=== PATIENT | female | born 1935 | race Caucasian/White ===

== ENCOUNTER → 2017-05-14 | Outpatient (CLI) | payer OTHER ==
[~2017-05-14] MED LIST: BENZOCAINE ONE 20% MUCOSAL SPRAY.; IOHEXOL 350 MG/ML 100 ML VIAL. ONE; IOHEXOL 350 MG/ML 50 ML VIAL. ONE; IV NORMAL SALINE 1,000 ML BAG ONE; LIDOCAINE 1% Multi-Dose 20 ML VIAL. ONE; MIDAZOLAM HCL/PF 2 MG/2 ML VIAL. ONE; fentaNYL PF VIAL 100 MCG/2 ML VIAL ONE
--- NOTE | 2017-05-14 16:40 | PCVCIMAG ---
APPROVED REPORT Study performed: 05/14/2017 09:21:26 EXAM: Comprehensive 2D, Doppler, and color-flow Echocardiogram Patient Location: CVL Status: routine BSA: 1.50 HR: 64 bpmBP: 155/65 mmHg Rhythm: LBBB Other Information Study Quality: Good Indications Aortic Valve Disease Congestive Heart Failure Assess Ejection Fraction Echo Enhancing Agent Indication: Rule out Shunt Agent(s) / Amount(s) Used: Agitated Saline cc Comments: Negative contrast study for shunt flow. 2D Dimensions LVOT Diam: 20.61 (18-24mm) LV Single Plane 4CH: 24.99 % LV Single Plane 2CH: 35.28 %Ortez's LVEF: 30.14 % Biplane EF: 30.4 % Aortic Valve AoV Peak Reji.: 2.51 m/s AO Peak Gr.: 24.66 mmHgLVOT Max P.47 mmHg AO Mean Gr.: 14.96 mmHgLVOT Mean P.62 mmHg AO V2 Mean: 1.82 m/sLVOT Max V: 0.93 m/s AO V2 VTI: 53.66 cmLVOT Mean V: 0.56 m/s MIRA (VTI): 1.18 [id number] V1 VTI: 18.94 cm MIRA Vmax: 1.23 cm2 SV (LVOT): 63.14 mL Procedure After obtaining informed consent, patient underwent transesophageal echo in the [employer]. Type of Sedation : Conscious Sedation Sedation was administered by Kathleen Bay RN. Versed (3mg) Fentanyl (75mcg) Transesophageal probe was inserted and advanced into esophagus without difficulty by Zain Bullock MD. Echo enhancement indication: R/O Septal defect. Echo enhancement agent administered: Agitated Saline The RENÉ was performed without complications. Throughout the procedure, the blood pressure, pulse oximetry, cardiac rhythm, and rate were monitored. The patient tolerated the procedure without adverse effects. Recovery from conscious sedation was uneventful and vital signs were stable. Left Ventricle The left ventricle is normal size. Global systolic dysfunction There is normal left ventricular wall thickness. Left ventricular systolic function is severely depressed. LVEF is 25-30%. Right Ventricle The right ventricle is normal size. The right ventricular systolic function is normal. Atria The left atrium size is normal. No masses or clots in the left atrium or appendage No shunting by contrast bubble injection The right atrium size is normal. Aortic Valve Aortic valve is trileaflet, mildly calcified. No aortic regurgitation is present. Calculated aortic valve area is 1.2 cm2 with maximum pressure gradient of 25 mmHg and mean pressure gradient of 15 mmHg. Mild-moderate stenosis Mitral Valve Mild mitral annular calcification Mild to moderate mitral regurgitation. No evidence of mitral valve stenosis. Tricuspid Valve The tricuspid valve is normal in structure. Mild tricuspid regurgitation. Pulmonic Valve The pulmonary valve is normal in structure. There is no pulmonic valvular regurgitation. Great Vessels The aortic root is normal in size. Mild scattered atherosclerosis in aorta. No aneurysm or dissection Pericardium There is no pericardial effusion. <Conclusion> Left ventricular systolic function is severely depressed. Global systolic dysfunction LVEF is 25-30%. The left atrium size is enlarged. No masses or clots in the left atrium or appendage. No shunting by contrast bubble injection Trileaflet aortic valve, mildly calcified Calculated aortic valve area is 1.2 cm2 with maximum pressure gradient of 25 mmHg and mean pressure gradient of 15 mmHg. Mild-moderate stenosis Mild mitral annular calcification. Mild to moderate mitral regurgitation. There is no pericardial effusion.
--- NOTE | 2017-05-14 16:53 | PCVCINTER ---
APPROVED REPORT Patient Details Patient Status: Out-Patient Room #: 1 The patient is a 81 year-old Female Event Personnel Ara Vences MD, Yefri Kasper RN, Kamala Mendiola,RT, , Rocio Schaefer RT(R) Risk Factors Dysplipidemia (Type: 1), Hypercholesterolemia, Last Creatanine 0.7Tobacco History (Never) Previous Procedures/Diagnoses Previous CHF, CHF, Valvular heart disease, LV dysfunction Procedure Narrative The patient was brought electively to the Cardiac Catheterization Laboratory and was prepped and draped in a sterile manner. The right femoral was infiltrated with 1% Lidocaine subcutaneous anesthesia. A 6 sheath was inserted into the right femoral artery. Coronary angiography was performed using coronary diagnostic catheters. The right coronary system was accessed and visualized with a JR4 catheter. The left coronary system was accessed and visualized with a JL4 catheter. An aortogram of the BRAZILIAN was performed. Closure device was deployed with a 6 Fr Mynx. Hemostasis was obtained with manual pressure following sheath removal without any complications. The patient tolerated the procedure well and there were no complications associated with the procedure. There was no hematoma. Coronary Angiography The patient's coronary anatomy is right dominant. Diagnostic Cath Left MainMild plaquing LADModerately calcificed. Moderate 30-40% scattered proximal and mid LAD plaquing. The LAD wrapped around the apex to the mid inferior wall Diagonal 1Normal [id number] was comprised of a single, large marginal branch. Mild scattered proximal plaquing 20-30% Right CoronaryModerately calcified proximal and mid vessel. 20-30% proximal and mid RCA plaquing 50% distal RCA stenosis prior to origin of small PDA Left Ventriculography Left Ventriculography was not performed. The left ventricular ejection fraction is estimated to be 25-30%. Supravalvular aortography: No aneurysm or dissection No aortic insufficiency Hemodynamics The aortic pressure is 146/58 mmHg with a mean of 89 mmHg. The left ventricular pressure is 146 mmHg with a mean of 89 mmHg. Conclusion 1. Severe left ventricular dysfunction. Mild-moderate aortic stenosis by echocardiography 2. LM mild plaquing 3. Moderate scattered proximal and mid LAD stenoses (30-40%) 4. Mild circumflex plaquing 5. Moderate RCA plaquing. 50% distal RCA stenosis Recommendations Medical Therapy
== END | disposition home or self-care (01) ==
LOC: PCVCINTER 08:33
PROVIDERS: ATTEND Internal Medicine
DX: I25.10 Atherosclerotic heart disease of native coronary artery without angina pectoris (principal); I08.1 Rheumatic disorders of both mitral and tricuspid valves; E78.00 Pure hypercholesterolemia, unspecified; E78.5 Hyperlipidemia, unspecified; I11.0 Hypertensive heart disease with heart failure; I50.9 Heart failure, unspecified
CPT/HCPCS: 93312; 93325; 93458; 99152; 99153; C1760; C1769; C1894; J1644; J2250; J3010; J7030; Q9967

== ENCOUNTER → 2017-08-19 | Outpatient (CLI) | payer OTHER ==
--- NOTE | 2017-08-19 14:42 | PCVCIMAG ---
APPROVED REPORT Study performed: 08/19/2017 12:57:27 EXAM: Comprehensive 2D, Doppler, and color-flow Echocardiogram Patient Location: Echo lab Status: routine BSA: 1.51 HR: 59 bpmBP: 124/58 mmHg Rhythm: LBBB Other Information Study Quality: Adequate Risk Factors: Cardiac Risk Factors: HTN, Hyperlipidemia Indications Aortic Valve Disease Congestive Heart Failure 2D Dimensions LVEF(%): 38.55 (>50%) IVSd: 14.04 (7-11mm)LVOT Diam: 20.00 (18-24mm) LVDd: 51.42 mm PWd: 14.16 (7-11mm)Ascending Ao: 31.09 (22-36mm) LVDs: 41.77 (25-40mm) Left Atrium: 37.74 (27-40mm) Aortic Root: 31.96 mm LV Single Plane 4CH: 34.01 % LV Single Plane 2CH: 31.55 %Ortez's LVEF: 32.78 % Volumes Left Atrial Volume (Systole) Single Plane 4CH: 54.30 mLSingle Plane 2CH: 50.29 mL LA ESV Index: 35.00 mL/m2 Aortic Valve AoV Peak Reji.: 2.41 m/s AO Peak Gr.: 23.28 mmHgLVOT Max P.01 mmHg AO Mean Gr.: 15.34 mmHgLVOT Mean P.95 mmHg AO V2 Mean: 1.89 m/sLVOT Max V: 1.00 m/s AO V2 VTI: 54.93 cmLVOT Mean V: 0.64 m/s MIRA (VTI): 1.30 [id number] V1 VTI: 20.07 cm MIRA Vmax: 1.27 cm2 AI Vmax: 2.74 m/sSV (LVOT): 61.29 mL AI [place]: 1.48 m/s2 AI PHT: 540.84 ms Mitral Valve E/A Ratio: 0.5 MV Decel. Time: 293.30 ms MV E Max Reji.: 0.67 m/s MV A Reji.: 1.38 m/s IVRT: 76.12 ms TDI E/Lateral E': 11.17 Preload (E/e): 6.00 (0-8m/s)Lateral E' Reji.: 0.06 m/s Pulmonary Valve PV Peak Reji.: 1.08 m/sPV Peak Gr.: 4.70 mmHg TN End Vmax: 0.90 m/s Pulmonary Vein P Vein S: 0.45 m/sP Vein A: 0.28 m/s P Vein D: 0.47 m/sP Vein A Dur.: 96.9 msec P Vein S/D Ratio: 0.96 Tricuspid Valve TR Peak Reji.: 2.22 m/sRAP Estimate: 7.00 mmHg TR Peak Gr.: 19.76 mmHg PA Pressure: 26.00 mmHg Left Ventricle The left ventricle is normal size. There is normal LV segmental wall motion. Moderate concentric left ventricular hypertrophy. Left ventricular systolic function is moderately decreased. Discordant septal motion probably from intraventricular conduction delay. LVEF is 30-35%. Grade I - abnormal relaxation pattern. Right Ventricle The right ventricle is normal size. The right ventricular systolic function is normal. Atria The left atrium size is normal. The right atrium size is normal. Aortic Valve Aortic valve leaflets are moderately calcified Mild aortic regurgitation. Mild to moderate aortic stenosis.Peak arotic valve gradient is 23 mmHg, and mean is 15 mmHg.Aortic valve area is 1.3 cm2. Mitral Valve Moderate mitral annular calcification. Mild to moderate mitral regurgitation. No evidence of mitral valve stenosis. Tricuspid Valve The tricuspid valve is normal in structure. Mild tricuspid regurgitation. Pulmonary artery pressure is 26 mmHg. Pulmonic Valve The pulmonary valve is normal in structure. Mild to moderate pulmonic regurgitation. Great Vessels The aortic root is normal in size. IVC is normal in size and collapses with >50% inspiration Pericardium There is no pericardial effusion. There is no pericardial effusion. <Conclusion> Left ventricular systolic function is moderately decreased. Discordant septal motion probably from intraventricular conduction delay. LVEF is 30-35%. Grade I diastolic dysfunction Aortic valve leaflets are moderately calcified. Mild aortic regurgitation. Mild to moderate aortic stenosis. Peak arotic valve gradient is 23 mmHg, and mean is 15 mmHg.Aortic valve area is 1.3 cm2. Moderate mitral annular calcification. Mild to moderate mitral regurgitation. Pulmonary artery pressure of 26mmHg No pericardial effusion
== END | disposition home or self-care (01) ==
LOC: PCVCIMAG 12:40
PROVIDERS: ATTEND Internal Medicine
DX: I11.0 Hypertensive heart disease with heart failure (principal); I50.32 Chronic diastolic (congestive) heart failure; E78.5 Hyperlipidemia, unspecified; I25.10 Atherosclerotic heart disease of native coronary artery without angina pectoris; I44.7 Left bundle-branch block, unspecified; I08.3 Combined rheumatic disorders of mitral, aortic and tricuspid valves; R94.31 Abnormal electrocardiogram [ECG] [EKG]; R00.1 Bradycardia, unspecified; Z79.899 Other long term (current) drug therapy
CPT/HCPCS: 93005; 93306; G0463

== ENCOUNTER → 2018-07-11 | Outpatient (CLI) | payer OTHER | END | disposition home or self-care (01) | LOC: PCVCCLINIC 14:59 | PROVIDERS: ATTEND Internal Medicine | DX: I25.10 Atherosclerotic heart disease of native coronary artery without angina pectoris (principal); I11.0 Hypertensive heart disease with heart failure; I50.9 Heart failure, unspecified; E78.5 Hyperlipidemia, unspecified | CPT/HCPCS: 36415 ==

== ENCOUNTER → 2018-08-23 | Outpatient (CLI) | payer OTHER | END | disposition home or self-care (01) | LOC: PCVCCLINIC 12:02 | PROVIDERS: ATTEND Internal Medicine | DX: I25.10 Atherosclerotic heart disease of native coronary artery without angina pectoris (principal); I11.0 Hypertensive heart disease with heart failure; I50.22 Chronic systolic (congestive) heart failure; I35.0 Nonrheumatic aortic (valve) stenosis; R94.31 Abnormal electrocardiogram [ECG] [EKG]; E78.5 Hyperlipidemia, unspecified; I44.7 Left bundle-branch block, unspecified; I42.9 Cardiomyopathy, unspecified; Z79.899 Other long term (current) drug therapy | CPT/HCPCS: 36415; 80061; 93005; G0463 ==

== ENCOUNTER → 2018-12-05 | Outpatient (CLI) | payer OTHER ==
--- NOTE | 2018-12-05 11:25 | PCVCIMAG ---
APPROVED REPORT Study performed: 12/05/2018 10:00:24 EXAM: Comprehensive 2D, Doppler, and color-flow Echocardiogram Patient Location: Echo lab Status: routine BSA: 1.49 HR: 61 bpmBP: 128/80 mmHg Rhythm: NSR Other Information Study Quality: Good Risk Factors: Cardiac Risk Factors: HTN Indications Aortic Valve Disease Cardiomyopathy Hypertension/HDD 2D Dimensions IVSd: 16.47 (7-11mm)LVOT Diam: 19.94 (18-24mm) LVDd: 59.88 mm PWd: 13.51 (7-11mm)Ascending Ao: 38.47 (22-36mm) LVDs: 53.76 (25-40mm) Left Atrium: 43.41 (27-40mm) Aortic Root: 31.40 mm LV Single Plane 4CH: 18.76 % LV Single Plane 2CH: 29.10 % Biplane EF: 25.7 % Volumes Left Atrial Volume (Systole) Single Plane 4CH: 52.25 mLSingle Plane 2CH: 61.64 mL LA ESV Index: 37.00 mL/m2 Aortic Valve AoV Peak Reji.: 2.72 m/s AO Peak Gr.: 29.49 mmHgLVOT Max P.79 mmHg AO Mean Gr.: 16.14 mmHgLVOT Mean P.51 mmHg AO V2 Mean: 1.91 m/sLVOT Max V: 0.84 m/s AO V2 VTI: 63.38 cmLVOT Mean V: 0.59 m/s MIRA (VTI): 0.88 [id number] V1 VTI: 17.87 cm MIRA Vmax: 0.96 cm2 SV (LVOT): 55.80 mL Mitral Valve E/A Ratio: 0.4 MV Decel. Time: 284.82 ms MV E Max Reji.: 0.59 m/s MV A Reji.: 1.46 m/s TDI E/Lateral E': 11.80E/Medial E': 9.83 Medial E' Reji.: 0.06 m/s Lateral E' Reji.: 0.05 m/s Pulmonary Valve PV Peak Gr.: 3.38 mmHg Pulmonary Vein P Vein S: 0.52 m/sP Vein A: 0.24 m/s P Vein D: 0.54 m/sP Vein A Dur.: 93.4 msec P Vein S/D Ratio: 0.96 Tricuspid Valve TR Peak Reji.: 2.48 m/s TR Peak Gr.: 24.55 mmHg Left Ventricle Left ventricle is dilated. There is global hypokinesis of the left ventricle. There is normal left ventricular wall thickness. Left ventricular systolic function is severely decreased. LVEF is 20-25%. Mild diastolic dysfunction is present (impaired relaxation pattern). Right Ventricle The right ventricle is normal size. The right ventricular systolic function is normal. Atria Left atrium is mildly dilated. The right atrium size is normal. Aortic Valve Aortic valve is probably trileaflet. Aortic valve leaflets are moderately thickened. Trace aortic regurgitation. Aortic peak gradient is 30mmHg. Mean gradient is 17mmHg. Calculated aortic valve area is 1.0cm2. Mitral Valve Moderate mitral annular calcification. Mild mitral regurgitation. No evidence of mitral valve stenosis. Tricuspid Valve The tricuspid valve is normal in structure. Trace to mild tricuspid regurgitation. Pulmonary artery pressure is 30 mmHg. Pulmonic Valve The pulmonary valve is normal in structure. Trace pulmonic regurgitation. Great Vessels The aortic root is normal in size. IVC is normal in size and collapses >50% with inspiration. Pericardium There is no pericardial effusion. <Conclusion> Left ventricular systolic function is severely decreased. There is global hypokinesis of the left ventricle. LVEF is 20-25%. Mild diastolic dysfunction Left atrium is mildly dilated. Aortic valve is probably trileaflet. Trace aortic regurgitation. Moderate stenosis Aortic peak gradient is 30mmHg. Mean gradient is 17mmHg. Calculated aortic valve area is 1.0cm2. Moderate mitral annular calcification. Mild mitral regurgitation. Trace to mild tricuspid regurgitation. Pulmonary artery pressure of 30 mmHg. There is no pericardial effusion.
== END | disposition home or self-care (01) ==
LOC: PCVCIMAG 09:59
PROVIDERS: ATTEND Internal Medicine
DX: I34.0 Nonrheumatic mitral (valve) insufficiency (principal); I10 Essential (primary) hypertension; I42.9 Cardiomyopathy, unspecified
CPT/HCPCS: 93306

== ENCOUNTER → 2019-06-20 | Outpatient (CLI) | payer OTHER | END | disposition home or self-care (01) | LOC: PCVCCLINIC 13:00 | PROVIDERS: ATTEND Internal Medicine | DX: I11.0 Hypertensive heart disease with heart failure (principal); I50.42 Chronic combined systolic (congestive) and diastolic (congestive) heart failure; I25.10 Atherosclerotic heart disease of native coronary artery without angina pectoris; I44.7 Left bundle-branch block, unspecified; I35.0 Nonrheumatic aortic (valve) stenosis; E78.5 Hyperlipidemia, unspecified; Z90.49 Acquired absence of other specified parts of digestive tract; Z96.642 Presence of left artificial hip joint; Z79.899 Other long term (current) drug therapy | CPT/HCPCS: 36415; 80061; 93005; G0463 ==